=== PATIENT | male | born 2000 | race Native Hawaiian/Other Pacific Islander ===

== ENCOUNTER 2024-11-30 16:57 | Emergency (ER) | payer OTHER ==
[~2024-11-30] VITALS: Ht 175.3 cm; Wt 114.0 kg
[2024-11-30 21:07] VITALS: BP 148/106; TEMP 97.7; O2SAT 97
== END 2024-11-30 21:23 | disposition home or self-care (01) ==
LOC: M ED 16:57
DX: S40.011A Contusion of right shoulder, initial encounter (principal); W00.0XXA Fall on same level due to ice and snow, initial encounter; Y92.009 Unspecified place in unspecified non-institutional (private) residence as the place of occurrence of the external cause; Y93.89 Activity, other specified; Y99.9 Unspecified external cause status

== ENCOUNTER 2025-10-12 09:57 | Emergency (ER) | payer OTHER ==
[~2025-10-12] VITALS: Ht 175.3 cm; Wt 118.7 kg
[2025-10-12 12:43] VITALS: BP 148/70; TEMP 96.9; O2SAT 98
== END 2025-10-12 12:55 | disposition home or self-care (01) ==
LOC: M ED 09:57
DX: R09.89 Other specified symptoms and signs involving the circulatory and respiratory systems (principal); B34.9 Viral infection, unspecified